=== PATIENT | female | born 1945 | race Caucasian/White ===

== ENCOUNTER 2018-06-10 11:08 | Inpatient (IN) | payer MEDICARE ==
[~2018-06-10] VITALS: Ht 152.4 cm; Wt 62.0 kg
[2018-06-10] VITALS (7 sets, daily range): BP systolic 104–132; BP diastolic 46–84
[2018-06-10] MEDS ORDERED: ETOMIDATE (2MG/ML) 20ML VIAL IV ONE ×2 (11:10→11:45)
[2018-06-10] MEDS ORDERED: SUCCINYLCHOLINE CHLORIDE 20 MG/ML 10ML VIAL IV ONE ×2 (11:11→11:45)
[2018-06-10] MEDS ORDERED: methylPREDNISolone SOD SUCC 125 MG/2 ML VL ONE (11:11)
[2018-06-10] MEDS ORDERED: MIDAZOLAM DRIP 50 mg/50mL 50 ML IV ONE (11:11)
[2018-06-10] MEDS ORDERED: methylPREDNISolone SOD SUCC 125 MG/2 ML VL IV ONE (11:13)
[2018-06-10] MEDS: MIDAZOLAM DRIP 50 mg/50mL 50 ML IV SCH ×2 (11:25→21:42)
[2018-06-10 11:35] LABS: Basophils # (auto) 0.1 uL; Basophils % (auto) 0.5 % (0.0-2.0); Eosinophils # (auto) 0.1 uL; Hemoglobin 11.3 g/dL (12.2-16.2)
[2018-06-10 11:38] LABS: Eosinophils % (auto) 0.3 % (0.0-7.0); Hematocrit 34.8 % (36.0-46.0); Lymphocytes % (auto) 10.3 % (10.0-50.0); Mean Corpuscular Hemoglobin 29.6 pg (28.0-32.0); Mean Corpuscular Hgb Conc. 32.3 g/dL (32.0-36.0); Mean Corpuscular Volume 91.7 fL (80.0-100.0); Monocytes # (auto) 1.3 uL; Monocytes % (auto) 6.4 % (0.0-12.0); Neutrophils # (auto) 16.2 uL; Neutrophils % (auto) 82.5 % (37.0-80.0); Platelet Count (auto) 447 10^3/uL (140-450); Red Cell Distribution Width 17.3 % (11.8-14.3); White Blood Cell 19.6 10^3/uL (4.4-10.8)
[2018-06-10 12:02] LABS: Albumin 3.5 g/dL (3.4-5.0); BUN/Creatinine Ratio 21.3; Bilirubin, Total 0.5 mg/dL (0.2-1.0); Calcium 8.7 mg/dL (8.5-10.1); Magnesium 2.2 mg/dL (1.6-2.6); Potassium 3.8 mmol/L (3.5-5.1); Total Protein 7.1 g/dL (6.4-8.2)
[2018-06-10] MEDS ORDERED: NOREPINEPHRINE 8 MG/250ML KIT 250 ML IV ONE (12:22)
[2018-06-10 12:56] LABS: Lactic Acid w/Reflex 5.4 mmol/L (0.4-2.0)
[2018-06-10] MEDS: NOREPINEPHRINE 8 MG/250ML KIT 250 ML IV SCH (13:13)
[2018-06-10] MEDS ORDERED: ONDANSETRON HCL 4 MG/2 ML VIAL IV PRN (13:45)
[2018-06-10] MEDS ORDERED: DEXTROSE (50%) 50ML SYRG IV ONE (14:45)
[2018-06-10] MEDS: cefTRIAXone 1GM/10ml IVPUSH 10 ML IV SCH (14:46)
[2018-06-10] MEDS: AZITHROMYCIN 500MG/ 250ML 250 ML IV SCH (14:46)
[2018-06-10] MEDS: FUROSEMIDE 20 MG/2 ML VIAL IV SCH (14:46)
[2018-06-10] MEDS: FAMOTIDINE (10MG/ML) 2ML VL IV SCH ×2 (14:47→22:30)
[2018-06-10] MEDS: D5W/SOD CHL 0.45% 1,000 ML IV SCH (15:14)
[2018-06-10 16:01] LABS: Urine Bacteria NONE SEEN /hpf (None Seen); Urine Blood 1+ /uL (Negative); Urine Hyaline Cast FEW /lpf (0 - 2); Urine Mucus FEW (None Seen); Urine WBC 1 /hpf (0 - 5)
[2018-06-10] MEDS: PROPOFOL 100 ML IV SCH (16:42)
[2018-06-10] MEDS ORDERED: ACCU-CHEK COMFORT CURVE STRIP VI ONE (17:00)
[2018-06-10] MEDS ORDERED: InsuLIN REG 1unit/0.01ml Soln (100units/ml) SC ONE (17:00)
[2018-06-10] MEDS: methylPREDNISolone SOD SUCC 40 MG/ML VL IV SCH (22:30)
[2018-06-11] VITALS (82 sets, daily range): BP systolic 86–126; BP diastolic 32–78
[2018-06-11] MEDS: MIDAZOLAM DRIP 50 mg/50mL 50 ML IV SCH ×3 (01:14→19:51)
[2018-06-11] MEDS: D5W/SOD CHL 0.45% 1,000 ML IV SCH ×3 (03:05→19:49)
[2018-06-11] MEDS: NOREPINEPHRINE 8 MG/250ML KIT 250 ML IV SCH (03:52)
[2018-06-11 08:17] LABS: Basophils # (auto) 0 uL; Basophils % (auto) 0.2 % (0.0-2.0); Eosinophils # (auto) 0 uL; Eosinophils % (auto) 0.1 % (0.0-7.0); Hematocrit 31.8 % (36.0-46.0); Hemoglobin 10.5 g/dL (12.2-16.2); Lymphocytes # (auto) 0.7 uL; Lymphocytes % (auto) 5.7 % (10.0-50.0); Mean Corpuscular Hemoglobin 29.6 pg (28.0-32.0); Mean Corpuscular Hgb Conc. 33.2 g/dL (32.0-36.0); Mean Corpuscular Volume 89.2 fL (80.0-100.0); Monocytes # (auto) 1.1 uL; Neutrophils # (auto) 10.2 uL; Platelet Count (auto) 370 10^3/uL (140-450); Red Blood Cells 3.57 10^6/uL (4.0-5.20); Red Cell Distribution Width 17.6 % (11.8-14.3)
[2018-06-11 08:53] LABS: Albumin 2.8 g/dL (3.4-5.0); BUN/Creatinine Ratio 22.7; Bilirubin, Total 0.4 mg/dL (0.2-1.0); Calcium 8.2 mg/dL (8.5-10.1); Potassium 3.6 mmol/L (3.5-5.1); Total Protein 6.4 g/dL (6.4-8.2)
[2018-06-11] MEDS: AZITHROMYCIN 500MG/ 250ML 250 ML IV SCH (09:45)
[2018-06-11] MEDS: FUROSEMIDE 20 MG/2 ML VIAL IV SCH (09:45)
[2018-06-11] MEDS: FAMOTIDINE (10MG/ML) 2ML VL IV SCH ×2 (09:45→22:25)
[2018-06-11] MEDS: methylPREDNISolone SOD SUCC 40 MG/ML VL IV SCH ×2 (09:46→22:25)
[2018-06-11] MEDS: cefTRIAXone 1GM/10ml IVPUSH 10 ML IV SCH (09:46)
[2018-06-11] MEDS: PROPOFOL 100 ML IV SCH ×2 (15:24→19:50)
[2018-06-12] VITALS (100 sets, daily range): BP systolic 86–144; BP diastolic 34–84
[2018-06-12] MEDS: MIDAZOLAM DRIP 50 mg/50mL 50 ML IV SCH ×4 (01:43→20:20)
[2018-06-12 04:12] LABS: Basophils # (auto) 0 uL; Eosinophils # (auto) 0 uL; Hematocrit 34.4 % (36.0-46.0); Lymphocytes # (auto) 0.6 uL; Mean Corpuscular Hemoglobin 29.6 pg (28.0-32.0); Mean Corpuscular Hgb Conc. 31.8 g/dL (32.0-36.0); Mean Corpuscular Volume 93.1 fL (80.0-100.0); Monocytes # (auto) 1.1 uL; Neutrophils # (auto) 10.2 uL; Nucleated Red Blood Cells % 0.1 %; Platelet Count (auto) 277 10^3/uL (140-450); Red Cell Distribution Width 18.2 % (11.8-14.3); White Blood Cell 11.9 10^3/uL (4.4-10.8)
[2018-06-12 04:30] LABS: Alanine Aminotransferase 29 U/L (13-56); Albumin 2.4 g/dL (3.4-5.0); Anion Gap 14 (5-15); Aspartate Aminotransferase 26 U/L (15-37); BUN/Creatinine Ratio 26.8; Blood Urea Nitrogen 15 mg/dL (7-18); Calcium 8.1 mg/dL (8.5-10.1); Carbon Dioxide 24 mmol/L (21-32); Chloride 92 mmol/L (98-107); GFR African American 137 mL/min; GFR Non-African American 113 mL/min; Glucose 126 mg/dL (74-106); Potassium 3.9 mmol/L (3.5-5.1); Sodium 130 mmol/L (136-145)
[2018-06-12 04:33] LABS: Alkaline Phosphatase 62 U/L (45-117); Bilirubin, Total 0.3 mg/dL (0.2-1.0); Total Protein 5.9 g/dL (6.4-8.2)
[2018-06-12] MEDS: FAMOTIDINE (10MG/ML) 2ML VL IV SCH ×2 (10:28→23:05)
[2018-06-12] MEDS: FUROSEMIDE 20 MG/2 ML VIAL IV SCH (10:28)
[2018-06-12] MEDS: VANCOMYCIN 1GM/250ML 250 ML IV SCH ×2 (10:28→22:00)
[2018-06-12] MEDS: cefTRIAXone 1GM/10ml IVPUSH 10 ML IV SCH (10:29)
[2018-06-12] MEDS: methylPREDNISolone SOD SUCC 40 MG/ML VL IV SCH ×2 (10:29→23:04)
[2018-06-12] MEDS: PROPOFOL 100 ML IV SCH (10:30)
[2018-06-12] MEDS: NOREPINEPHRINE 8 MG/250ML KIT 250 ML IV SCH (12:50)
[2018-06-12] MEDS: D5W/SOD CHL 0.45% 1,000 ML IV SCH (14:30)
[2018-06-12] MEDS ORDERED: MAGN400T5 PO (15:22)
[2018-06-12] MEDS ORDERED: SODIENE35 RE (15:37)
[2018-06-12] MEDS ORDERED: POTA10TA51 PO (15:37)
[2018-06-12] MEDS ORDERED: PRE5T PO (15:37)
[2018-06-12] MEDS ORDERED: FAM20T PO (15:37)
[2018-06-12] MEDS ORDERED: THIA100T5 PO (15:37)
[2018-06-12] MEDS ORDERED: SENN1TAB14 PO (15:37)
[2018-06-12] MEDS ORDERED: FURO40TA4 PO (15:37)
[2018-06-12] MEDS ORDERED: FOLI1TAB6 PO (15:37)
[2018-06-12] MEDS ORDERED: FER325T PO (15:37)
[2018-06-12] MEDS ORDERED: ALPR0.25 PO (16:09)
[2018-06-12] MEDS ORDERED: AZIT250T8 PO (16:09)
[2018-06-12] MEDS ORDERED: ONDA4TAB5 PO (16:09)
[2018-06-12] MEDS ORDERED: NITR0.4S29 SL (16:09)
[2018-06-12] MEDS ORDERED: IPRA0.03 (16:09)
[2018-06-12] MEDS ORDERED: MOMLQ PO (16:09)
[2018-06-12] MEDS ORDERED: BIS10RS PR (16:09)
[2018-06-12] MEDS ORDERED: HYDR-4683 PO (16:09)
[2018-06-12] MEDS ORDERED: LEVA1NEB5 NEB ×2 (16:09)
[2018-06-12] MEDS ORDERED: FLUT0.05 NAS (16:09)
[2018-06-12] MEDS ORDERED: DEXTROSE (50%) 50ML SYRG IV PRN (17:00)
[2018-06-12] MEDS: ACCU-CHEK COMFORT CURVE STRIP VI SCH (18:30)
[2018-06-12] MEDS: InsuLIN REG 1unit/0.01ml Soln (100units/ml) SC SCH (18:40)
[2018-06-13] VITALS (101 sets, daily range): BP systolic 101–155; BP diastolic 41–96
[2018-06-13] MEDS: ALBUTEROL SULF 2.5 MG/0.5ML(0.5%) NEB SOLN NEB PRN ×2 (03:36→18:17)
[2018-06-13] MEDS: IPRATROPIUM BROM 0.5 MG/2.5ML INH SOL NEB PRN ×2 (03:36→18:17)
[2018-06-13 03:51] LABS: Basophils # (auto) 0 uL; Basophils % (auto) 0.3 % (0.0-2.0); Eosinophils # (auto) 0 uL; Hematocrit 34.6 % (36.0-46.0); Hemoglobin 11.4 g/dL (12.2-16.2); Lymphocytes # (auto) 0.3 uL; Lymphocytes % (auto) 4.6 % (10.0-50.0); Mean Corpuscular Hemoglobin 29.4 pg (28.0-32.0); Mean Corpuscular Volume 89.2 fL (80.0-100.0); Monocytes # (auto) 0.4 uL; Monocytes % (auto) 5.7 % (0.0-12.0); Neutrophils # (auto) 6.6 uL; Neutrophils % (auto) 89.4 % (37.0-80.0); Nucleated Red Blood Cells % 0.1 %; Platelet Count (auto) 329 10^3/uL (140-450); Red Blood Cells 3.88 10^6/uL (4.0-5.20); Red Cell Distribution Width 17.5 % (11.8-14.3); White Blood Cell 7.4 10^3/uL (4.4-10.8)
[2018-06-13 04:11] LABS: Albumin 2.7 g/dL (3.4-5.0); BUN/Creatinine Ratio 32.6; Bilirubin, Total 0.3 mg/dL (0.2-1.0); Calcium 8.4 mg/dL (8.5-10.1); Potassium 3.4 mmol/L (3.5-5.1); Total Protein 6.1 g/dL (6.4-8.2)
[2018-06-13] MEDS: MIDAZOLAM DRIP 50 mg/50mL 50 ML IV SCH ×2 (05:54→13:44)
[2018-06-13] MEDS: ACCU-CHEK COMFORT CURVE STRIP VI SCH ×4 (05:56→18:00)
[2018-06-13] MEDS: D5W/SOD CHL 0.45% 1,000 ML IV SCH ×2 (05:56→21:29)
[2018-06-13] MEDS: InsuLIN REG 1unit/0.01ml Soln (100units/ml) SC SCH ×4 (06:09→18:00)
[2018-06-13] MEDS: PROPOFOL 100 ML IV SCH (07:35)
[2018-06-13] MEDS: FUROSEMIDE 20 MG/2 ML VIAL IV SCH (09:36)
[2018-06-13] MEDS: methylPREDNISolone SOD SUCC 40 MG/ML VL IV SCH ×2 (09:36→22:16)
[2018-06-13] MEDS: FAMOTIDINE (10MG/ML) 2ML VL IV SCH ×2 (09:36→22:15)
[2018-06-13] MEDS: VANCOMYCIN 1GM/250ML 250 ML IV SCH ×2 (09:44→22:16)
[2018-06-13] MEDS: cefTRIAXone 1GM/10ml IVPUSH 10 ML IV SCH (09:44)
[2018-06-13] MEDS ORDERED: hydrALAZINE HCL 20 MG/ML VL IV PRN (11:00)
[2018-06-13] MEDS ORDERED: POTASSIUM CHL 20MEQ/100ML 100 ML IV SCH (11:00)
[2018-06-13] MEDS: MORPHINE SULF INJ 2 MG/ML SYRINGE 1ML IV PRN (11:21)
[2018-06-13] MEDS ORDERED: LIDOCAINE 1% IV ONE (11:30)
[2018-06-13] MEDS ORDERED: SODIUM CHL 0.9% IV ONE (11:30)
[2018-06-13] MEDS ORDERED: POTASSIUM CHLORIDE IV ONE (11:30)
[2018-06-13] MEDS: NOREPINEPHRINE 8 MG/250ML KIT 250 ML IV SCH (12:50)
[2018-06-14] VITALS (94 sets, daily range): BP systolic 111–168; BP diastolic 43–85
[2018-06-14] MEDS: IPRATROPIUM BROM 0.5 MG/2.5ML INH SOL NEB PRN (00:16)
[2018-06-14] MEDS: ALBUTEROL SULF 2.5 MG/0.5ML(0.5%) NEB SOLN NEB PRN (00:16)
[2018-06-14 03:48] LABS: Basophils # (auto) 0 uL; Basophils % (auto) 0.4 % (0.0-2.0); Eosinophils # (auto) 0.2 uL; Hematocrit 34.6 % (36.0-46.0); Hemoglobin 11.4 g/dL (12.2-16.2); Lymphocytes # (auto) 0.2 uL; Lymphocytes % (auto) 2.1 % (10.0-50.0); Mean Corpuscular Hemoglobin 29.3 pg (28.0-32.0); Mean Corpuscular Volume 88.8 fL (80.0-100.0); Monocytes # (auto) 0.4 uL; Monocytes % (auto) 4.6 % (0.0-12.0); Neutrophils # (auto) 8.1 uL; Neutrophils % (auto) 90.9 % (37.0-80.0); Nucleated Red Blood Cells % 0.1 %; Platelet Count (auto) 370 10^3/uL (140-450); Red Blood Cells 3.89 10^6/uL (4.0-5.20); Red Cell Distribution Width 17.4 % (11.8-14.3); White Blood Cell 8.9 10^3/uL (4.4-10.8)
[2018-06-14 04:03] LABS: BUN/Creatinine Ratio 34.9; Calcium 8.7 mg/dL (8.5-10.1)
[2018-06-14] MEDS: InsuLIN REG 1unit/0.01ml Soln (100units/ml) SC SCH ×4 (06:00→18:00)
[2018-06-14] MEDS: ACCU-CHEK COMFORT CURVE STRIP VI SCH ×4 (06:12→18:18)
[2018-06-14] MEDS ORDERED: FUROSEMIDE 40 MG/4 ML VIAL ONE (10:01)
[2018-06-14] MEDS: cefTRIAXone 1GM/10ml IVPUSH 10 ML IV SCH (10:09)
[2018-06-14] MEDS: VANCOMYCIN 1GM/250ML 250 ML IV SCH ×2 (10:09→21:57)
[2018-06-14] MEDS: FAMOTIDINE (10MG/ML) 2ML VL IV SCH ×2 (10:09→22:18)
[2018-06-14] MEDS: methylPREDNISolone SOD SUCC 40 MG/ML VL IV SCH ×2 (10:10→22:18)
[2018-06-14] MEDS: FUROSEMIDE 40 MG/4 ML VIAL IV SCH (10:15)
[2018-06-14] MEDS: D5W/SOD CHL 0.45% 1,000 ML IV SCH (11:05)
[2018-06-14] MEDS: NOREPINEPHRINE 8 MG/250ML KIT 250 ML IV SCH (12:50)
[2018-06-14] MEDS ORDERED: Jevity 1.2 Cal/Fiber 1 Liter GT SCH (17:00)
[2018-06-14] MEDS: PROPOFOL 100 ML IV SCH (18:18)
[2018-06-15] VITALS (104 sets, daily range): BP systolic 91–155; BP diastolic 40–92
[2018-06-15] MEDS: ACCU-CHEK COMFORT CURVE STRIP VI SCH ×4 (00:18→18:11)
[2018-06-15] MEDS: D5W/SOD CHL 0.45% 1,000 ML IV SCH (01:00)
[2018-06-15 04:32] LABS: Basophils # (auto) 0 uL; Basophils % (auto) 0.2 % (0.0-2.0); Eosinophils # (auto) 0 uL; Hematocrit 35.6 % (36.0-46.0); Hemoglobin 12.1 g/dL (12.2-16.2); Lymphocytes # (auto) 0.4 uL; Lymphocytes % (auto) 4.4 % (10.0-50.0); Mean Corpuscular Hemoglobin 30.1 pg (28.0-32.0); Mean Corpuscular Hgb Conc. 33.9 g/dL (32.0-36.0); Mean Corpuscular Volume 88.7 fL (80.0-100.0); Monocytes # (auto) 0.6 uL; Monocytes % (auto) 6.6 % (0.0-12.0); Neutrophils # (auto) 8.8 uL; Neutrophils % (auto) 88.8 % (37.0-80.0); Platelet Count (auto) 351 10^3/uL (140-450); Red Blood Cells 4.01 10^6/uL (4.0-5.20); Red Cell Distribution Width 16.8 % (11.8-14.3); White Blood Cell 9.9 10^3/uL (4.4-10.8)
[2018-06-15 04:46] LABS: Albumin 2.7 g/dL (3.4-5.0); BUN/Creatinine Ratio 44.4; Calcium 9.1 mg/dL (8.5-10.1); Potassium 3.4 mmol/L (3.5-5.1)
[2018-06-15 04:49] LABS: Bilirubin, Total 0.3 mg/dL (0.2-1.0); Total Protein 6.1 g/dL (6.4-8.2)
[2018-06-15] MEDS: InsuLIN REG 1unit/0.01ml Soln (100units/ml) SC SCH ×4 (06:27→18:11)
[2018-06-15] MEDS: PROPOFOL 100 ML IV SCH ×2 (08:00→21:00)
[2018-06-15] MEDS: FUROSEMIDE 40 MG/4 ML VIAL IV SCH (09:56)
[2018-06-15] MEDS: cefTRIAXone 1GM/10ml IVPUSH 10 ML IV SCH (09:57)
[2018-06-15] MEDS: FAMOTIDINE (10MG/ML) 2ML VL IV SCH ×2 (09:57→22:00)
[2018-06-15] MEDS: methylPREDNISolone SOD SUCC 40 MG/ML VL IV SCH ×2 (09:57→22:00)
[2018-06-15] MEDS ORDERED: VANCOMYCIN 1GM/250ML 250 ML IV SCH (10:00)
[2018-06-15] MEDS: MIDAZOLAM DRIP 50 mg/50mL 50 ML IV SCH (11:38)
[2018-06-15] MEDS: NOREPINEPHRINE 8 MG/250ML KIT 250 ML IV SCH (12:50)
[2018-06-15] MEDS ORDERED: FUROSEMIDE 40 MG/4 ML VIAL IV ONE (13:30)
[2018-06-15] MEDS: LINEZOLID 600MG/300ML 300 ML IV SCH ×2 (14:37→22:00)
[2018-06-15] MEDS: POTASSIUM CHL 20MEQ/100ML 100 ML IV SCH ×3 (14:37→18:30)
[2018-06-16] VITALS (105 sets, daily range): BP systolic 65–157; BP diastolic 43–107
[2018-06-16 03:45] LABS: Basophils # (auto) 0 uL; Eosinophils # (auto) 0 uL; Hematocrit 35.6 % (36.0-46.0); Hemoglobin 11.8 g/dL (12.2-16.2); Lymphocytes # (auto) 0.5 uL; Lymphocytes % (auto) 3.6 % (10.0-50.0); Mean Corpuscular Hemoglobin 29.2 pg (28.0-32.0); Mean Corpuscular Volume 88.5 fL (80.0-100.0); Monocytes # (auto) 0.7 uL; Monocytes % (auto) 5.5 % (0.0-12.0); Neutrophils # (auto) 12.3 uL; Neutrophils % (auto) 90.9 % (37.0-80.0); Nucleated Red Blood Cells % 0.1 %; Platelet Count (auto) 350 10^3/uL (140-450); Red Blood Cells 4.02 10^6/uL (4.0-5.20); Red Cell Distribution Width 16.9 % (11.8-14.3); White Blood Cell 13.6 10^3/uL (4.4-10.8)
[2018-06-16 04:02] LABS: Potassium 3.4 mmol/L (3.5-5.1)
[2018-06-16 04:04] LABS: BUN/Creatinine Ratio 41.1
[2018-06-16] MEDS: ACCU-CHEK COMFORT CURVE STRIP VI SCH ×3 (06:00→12:28)
[2018-06-16] MEDS: InsuLIN REG 1unit/0.01ml Soln (100units/ml) SC SCH ×3 (06:00→13:18)
[2018-06-16] MEDS: PROPOFOL 100 ML IV SCH (07:50)
[2018-06-16] MEDS: methylPREDNISolone SOD SUCC 40 MG/ML VL IV SCH ×2 (10:30→22:30)
[2018-06-16] MEDS: cefTRIAXone 1GM/10ml IVPUSH 10 ML IV SCH (10:30)
[2018-06-16] MEDS: FUROSEMIDE 40 MG/4 ML VIAL IV SCH (10:51)
[2018-06-16] MEDS: LINEZOLID 600MG/300ML 300 ML IV SCH ×2 (10:52→22:29)
[2018-06-16] MEDS: FAMOTIDINE (10MG/ML) 2ML VL IV SCH ×2 (10:52→22:30)
[2018-06-16] MEDS: MIDAZOLAM DRIP 50 mg/50mL 50 ML IV SCH (10:52)
[2018-06-16] MEDS: POTASSIUM CHL 20MEQ/100ML 100 ML IV PRN ×3 (11:00→14:49)
[2018-06-16] MEDS ORDERED: ENOXAPARIN SOD 40 MG/0.4 ML SYRINGE SC ONE (11:35)
[2018-06-16] MEDS: ENOXAPARIN SOD 40 MG/0.4 ML SYRINGE SC SCH (12:00)
[2018-06-16] MEDS: NOREPINEPHRINE 8 MG/250ML KIT 250 ML IV SCH (12:50)
[2018-06-16] MEDS ORDERED: IOHEXOL 350 MG/ML 100ML IJ ONE (15:24)
[2018-06-17] VITALS (102 sets, daily range): BP systolic 0–146; BP diastolic 0–84
[2018-06-17] MEDS: ACCU-CHEK COMFORT CURVE STRIP VI SCH ×4 (02:47→18:49)
[2018-06-17] MEDS: InsuLIN REG 1unit/0.01ml Soln (100units/ml) SC SCH ×4 (02:47→18:00)
[2018-06-17 04:20] LABS: Basophils # (auto) 0 uL; Basophils % (auto) 0.1 % (0.0-2.0); Eosinophils # (auto) 0 uL; Eosinophils % (auto) 0.1 % (0.0-7.0); Hematocrit 34.5 % (36.0-46.0); Hemoglobin 11.6 g/dL (12.2-16.2); Lymphocytes # (auto) 0.5 uL; Lymphocytes % (auto) 5.5 % (10.0-50.0); Mean Corpuscular Hemoglobin 29.7 pg (28.0-32.0); Mean Corpuscular Hgb Conc. 33.6 g/dL (32.0-36.0); Mean Corpuscular Volume 88.4 fL (80.0-100.0); Monocytes # (auto) 0.5 uL; Monocytes % (auto) 5.6 % (0.0-12.0); Neutrophils # (auto) 8.5 uL; Neutrophils % (auto) 88.7 % (37.0-80.0); Platelet Count (auto) 340 10^3/uL (140-450); Red Cell Distribution Width 16.5 % (11.8-14.3); White Blood Cell 9.5 10^3/uL (4.4-10.8)
[2018-06-17 04:42] LABS: BUN/Creatinine Ratio 41.1; Bilirubin, Total 0.3 mg/dL (0.2-1.0); Calcium 8.6 mg/dL (8.5-10.1); Potassium 3.9 mmol/L (3.5-5.1); Total Protein 6.4 g/dL (6.4-8.2)
[2018-06-17] MEDS: POTASSIUM CHL 20MEQ/100ML 100 ML IV PRN ×2 (07:30→09:43)
[2018-06-17] MEDS: methylPREDNISolone SOD SUCC 40 MG/ML VL IV SCH ×2 (09:41→21:50)
[2018-06-17] MEDS: FUROSEMIDE 40 MG/4 ML VIAL IV SCH (09:41)
[2018-06-17] MEDS: FAMOTIDINE (10MG/ML) 2ML VL IV SCH ×2 (09:41→21:50)
[2018-06-17] MEDS: cefTRIAXone 1GM/10ml IVPUSH 10 ML IV SCH (09:41)
[2018-06-17] MEDS: ENOXAPARIN SOD 40 MG/0.4 ML SYRINGE SC SCH (09:42)
[2018-06-17] MEDS: LINEZOLID 600MG/300ML 300 ML IV SCH ×2 (09:42→21:50)
[2018-06-17] MEDS: MIDAZOLAM DRIP 50 mg/50mL 50 ML IV SCH (11:38)
[2018-06-17] MEDS ORDERED: IOHEXOL 350 MG/ML 100ML IJ ONE (12:14)
[2018-06-17] MEDS: NOREPINEPHRINE 8 MG/250ML KIT 250 ML IV SCH (12:50)
[2018-06-17] MEDS: PROPOFOL 100 ML IV SCH (18:00)
[2018-06-18] VITALS (90 sets, daily range): BP systolic 65–150; BP diastolic 27–107
[2018-06-18] MEDS: ACCU-CHEK COMFORT CURVE STRIP VI SCH ×4 (00:18→18:28)
[2018-06-18] MEDS: InsuLIN REG 1unit/0.01ml Soln (100units/ml) SC SCH ×4 (00:18→18:00)
[2018-06-18 04:04] LABS: Basophils # (auto) 0 uL; Eosinophils # (auto) 0 uL; Eosinophils % (auto) 0.1 % (0.0-7.0); Hematocrit 35.3 % (36.0-46.0); Hemoglobin 11.9 g/dL (12.2-16.2); Lymphocytes # (auto) 0.6 uL; Lymphocytes % (auto) 6.8 % (10.0-50.0); Mean Corpuscular Hemoglobin 29.7 pg (28.0-32.0); Mean Corpuscular Hgb Conc. 33.7 g/dL (32.0-36.0); Mean Corpuscular Volume 88.1 fL (80.0-100.0); Monocytes # (auto) 0.6 uL; Monocytes % (auto) 6.3 % (0.0-12.0); Neutrophils # (auto) 7.7 uL; Neutrophils % (auto) 86.8 % (37.0-80.0); Platelet Count (auto) 353 10^3/uL (140-450); Red Blood Cells 4.01 10^6/uL (4.0-5.20); Red Cell Distribution Width 16.2 % (11.8-14.3); White Blood Cell 8.8 10^3/uL (4.4-10.8)
[2018-06-18 04:21] LABS: Albumin 2.9 g/dL (3.4-5.0); BUN/Creatinine Ratio 45.5; Calcium 8.6 mg/dL (8.5-10.1); Potassium 3.6 mmol/L (3.5-5.1)
[2018-06-18 04:24] LABS: Bilirubin, Total 0.2 mg/dL (0.2-1.0); Total Protein 6.5 g/dL (6.4-8.2)
[2018-06-18] MEDS ORDERED: POTASSIUM CHL 20MEQ/100ML 100 ML, POTASSIUM CHL 20MEQ/100ML 100 ML IV PRN (05:45)
[2018-06-18] MEDS: POTASSIUM CHL 20MEQ/100ML 100 ML IV PRN (06:33)
[2018-06-18] MEDS: PROPOFOL 100 ML IV SCH (06:33)
[2018-06-18] MEDS: cefTRIAXone 1GM/10ml IVPUSH 10 ML IV SCH (11:12)
[2018-06-18] MEDS: FUROSEMIDE 40 MG/4 ML VIAL IV SCH (11:12)
[2018-06-18] MEDS: FAMOTIDINE (10MG/ML) 2ML VL IV SCH ×2 (11:12→22:43)
[2018-06-18] MEDS: methylPREDNISolone SOD SUCC 40 MG/ML VL IV SCH ×2 (11:13→22:43)
[2018-06-18] MEDS: ENOXAPARIN SOD 40 MG/0.4 ML SYRINGE SC SCH (11:13)
[2018-06-18] MEDS: MIDAZOLAM DRIP 50 mg/50mL 50 ML IV SCH (11:13)
[2018-06-18] MEDS: LINEZOLID 600MG/300ML 300 ML IV SCH ×2 (11:13→22:43)
[2018-06-18] MEDS: NOREPINEPHRINE 8 MG/250ML KIT 250 ML IV SCH (12:37)
[2018-06-18] MEDS: ALBUTEROL SULF 2.5 MG/0.5ML(0.5%) NEB SOLN NEB SCH ×2 (14:14→22:10)
[2018-06-18] MEDS: IPRATROPIUM BROM 0.5 MG/2.5ML INH SOL NEB PRN ×2 (14:14→22:10)
[2018-06-18] MEDS: MORPHINE SULF INJ 2 MG/ML SYRINGE 1ML IV PRN (14:29)
[2018-06-19] VITALS (58 sets, daily range): BP systolic 78–137; BP diastolic 30–64
[2018-06-19] MEDS: InsuLIN REG 1unit/0.01ml Soln (100units/ml) SC SCH ×4 (00:08→17:53)
[2018-06-19] MEDS: ACCU-CHEK COMFORT CURVE STRIP VI SCH ×4 (00:08→17:53)
[2018-06-19 04:05] LABS: BUN/Creatinine Ratio 33.9; Calcium 8.6 mg/dL (8.5-10.1)
[2018-06-19] MEDS: ALBUTEROL SULF 2.5 MG/0.5ML(0.5%) NEB SOLN NEB SCH ×3 (06:55→22:35)
[2018-06-19] MEDS: cefTRIAXone 1GM/10ml IVPUSH 10 ML IV SCH (09:53)
[2018-06-19] MEDS: ENOXAPARIN SOD 40 MG/0.4 ML SYRINGE SC SCH (09:53)
[2018-06-19] MEDS: FUROSEMIDE 40 MG/4 ML VIAL IV SCH (09:53)
[2018-06-19] MEDS: FAMOTIDINE (10MG/ML) 2ML VL IV SCH ×2 (09:53→22:36)
[2018-06-19] MEDS: NOREPINEPHRINE 8 MG/250ML KIT 250 ML IV SCH (09:54)
[2018-06-19] MEDS: LINEZOLID 600MG/300ML 300 ML IV SCH ×2 (09:54→22:37)
[2018-06-19] MEDS: methylPREDNISolone SOD SUCC 40 MG/ML VL IV SCH ×2 (09:54→22:37)
[2018-06-20] VITALS (7 sets, daily range): BP systolic 96–124; BP diastolic 46–65
[2018-06-20] MEDS: ACCU-CHEK COMFORT CURVE STRIP VI SCH ×4 (00:40→17:47)
[2018-06-20] MEDS: InsuLIN REG 1unit/0.01ml Soln (100units/ml) SC SCH ×4 (00:40→17:47)
[2018-06-20] MEDS: ALBUTEROL SULF 2.5 MG/0.5ML(0.5%) NEB SOLN NEB SCH ×3 (06:08→22:00)
[2018-06-20] MEDS: ENOXAPARIN SOD 40 MG/0.4 ML SYRINGE SC SCH (10:00)
[2018-06-20 10:27] LABS: Basophils # (auto) 0 uL; Basophils % (auto) 0.1 % (0.0-2.0); Eosinophils # (auto) 0 uL; Eosinophils % (auto) 0.1 % (0.0-7.0); Hematocrit 37.6 % (36.0-46.0); Hemoglobin 12.9 g/dL (12.2-16.2); Lymphocytes # (auto) 0.7 uL; Lymphocytes % (auto) 7.1 % (10.0-50.0); Mean Corpuscular Hemoglobin 30.3 pg (28.0-32.0); Mean Corpuscular Hgb Conc. 34.4 g/dL (32.0-36.0); Mean Corpuscular Volume 88.1 fL (80.0-100.0); Monocytes # (auto) 0.6 uL; Monocytes % (auto) 5.5 % (0.0-12.0); Neutrophils % (auto) 87.2 % (37.0-80.0); Nucleated Red Blood Cells % 0.1 %; Platelet Count (auto) 257 10^3/uL (140-450); Red Blood Cells 4.27 10^6/uL (4.0-5.20); Red Cell Distribution Width 16.6 % (11.8-14.3); White Blood Cell 10.3 10^3/uL (4.4-10.8)
[2018-06-20] MEDS: LINEZOLID 600MG/300ML 300 ML IV SCH ×2 (10:29→21:47)
[2018-06-20] MEDS: FAMOTIDINE (10MG/ML) 2ML VL IV SCH ×2 (10:30→21:46)
[2018-06-20] MEDS: FUROSEMIDE 40 MG/4 ML VIAL IV SCH (10:30)
[2018-06-20] MEDS: methylPREDNISolone SOD SUCC 40 MG/ML VL IV SCH ×2 (10:30→21:46)
[2018-06-20] MEDS: cefTRIAXone 1GM/10ml IVPUSH 10 ML IV SCH (10:30)
[2018-06-21] MEDS: ACCU-CHEK COMFORT CURVE STRIP VI SCH ×4 (00:13→17:46)
[2018-06-21] MEDS: InsuLIN REG 1unit/0.01ml Soln (100units/ml) SC SCH ×4 (00:13→17:46)
[2018-06-21 04:55] VITALS: BP 117/58
[2018-06-21] MEDS: ALBUTEROL SULF 2.5 MG/0.5ML(0.5%) NEB SOLN NEB SCH ×3 (06:12→22:28)
[2018-06-21 07:45] LABS: Basophils # (auto) 0 uL; Basophils % (auto) 0.1 % (0.0-2.0); Eosinophils # (auto) 0 uL; Eosinophils % (auto) 0.1 % (0.0-7.0); Hematocrit 36.9 % (36.0-46.0); Hemoglobin 12.6 g/dL (12.2-16.2); Lymphocytes # (auto) 0.7 uL; Lymphocytes % (auto) 7.7 % (10.0-50.0); Mean Corpuscular Hemoglobin 29.8 pg (28.0-32.0); Mean Corpuscular Hgb Conc. 34.1 g/dL (32.0-36.0); Mean Corpuscular Volume 87.3 fL (80.0-100.0); Monocytes # (auto) 0.5 uL; Monocytes % (auto) 5.3 % (0.0-12.0); Neutrophils # (auto) 7.8 uL; Neutrophils % (auto) 86.8 % (37.0-80.0); Platelet Count (auto) 320 10^3/uL (140-450); Red Blood Cells 4.23 10^6/uL (4.0-5.20); Red Cell Distribution Width 16.1 % (11.8-14.3)
[2018-06-21 08:03] LABS: BUN/Creatinine Ratio 27.1; Calcium 8.7 mg/dL (8.5-10.1); Potassium 3.1 mmol/L (3.5-5.1)
[2018-06-21 09:00] VITALS: BP 105/56
[2018-06-21] MEDS: FUROSEMIDE 40 MG/4 ML VIAL IV SCH (10:14)
[2018-06-21] MEDS: FAMOTIDINE (10MG/ML) 2ML VL IV SCH ×2 (10:14→21:20)
[2018-06-21] MEDS: cefTRIAXone 1GM/10ml IVPUSH 10 ML IV SCH (10:15)
[2018-06-21] MEDS: LINEZOLID 600MG/300ML 300 ML IV SCH ×2 (10:16→21:15)
[2018-06-21] MEDS: methylPREDNISolone SOD SUCC 40 MG/ML VL IV SCH ×2 (10:16→21:17)
[2018-06-21] MEDS: ENOXAPARIN SOD 40 MG/0.4 ML SYRINGE SC SCH (10:16)
[2018-06-21 11:54] VITALS: BP 112/56
[2018-06-21 16:54] VITALS: BP 95/63
[2018-06-21] MEDS: MORPHINE SULF INJ 2 MG/ML SYRINGE 1ML IV PRN (20:21)
[2018-06-21 22:02] VITALS: BP 114/87
[2018-06-21] MEDS: IPRATROPIUM BROM 0.5 MG/2.5ML INH SOL NEB PRN (22:28)
[2018-06-22] MEDS: ACCU-CHEK COMFORT CURVE STRIP VI SCH ×4 (00:17→17:41)
[2018-06-22] MEDS: InsuLIN REG 1unit/0.01ml Soln (100units/ml) SC SCH ×4 (00:18→17:41)
[2018-06-22 05:00] VITALS: BP 122/63
[2018-06-22 05:42] LABS: Basophils # (auto) 0 uL; Eosinophils # (auto) 0 uL; Hematocrit 35.8 % (36.0-46.0); Hemoglobin 12.6 g/dL (12.2-16.2); Lymphocytes # (auto) 0.5 uL; Lymphocytes % (auto) 4.8 % (10.0-50.0); Mean Corpuscular Hemoglobin 30.3 pg (28.0-32.0); Mean Corpuscular Hgb Conc. 35.1 g/dL (32.0-36.0); Mean Corpuscular Volume 86.3 fL (80.0-100.0); Monocytes # (auto) 0.5 uL; Monocytes % (auto) 4.8 % (0.0-12.0); Neutrophils # (auto) 9.7 uL; Neutrophils % (auto) 90.4 % (37.0-80.0); Platelet Count (auto) 280 10^3/uL (140-450); Red Blood Cells 4.14 10^6/uL (4.0-5.20); White Blood Cell 10.8 10^3/uL (4.4-10.8)
[2018-06-22 06:01] LABS: BUN/Creatinine Ratio 25.5; Calcium 8.4 mg/dL (8.5-10.1); Potassium 3.1 mmol/L (3.5-5.1)
[2018-06-22] MEDS: ALBUTEROL SULF 2.5 MG/0.5ML(0.5%) NEB SOLN NEB SCH ×3 (07:17→21:58)
[2018-06-22 08:32] VITALS: BP 122/63
[2018-06-22 09:00] VITALS: BP 113/66
[2018-06-22] MEDS: cefTRIAXone 1GM/10ml IVPUSH 10 ML IV SCH (09:49)
[2018-06-22] MEDS: FAMOTIDINE (10MG/ML) 2ML VL IV SCH ×2 (09:49→21:01)
[2018-06-22] MEDS: methylPREDNISolone SOD SUCC 40 MG/ML VL IV SCH ×2 (09:50→21:01)
[2018-06-22] MEDS: LINEZOLID 600MG/300ML 300 ML IV SCH ×2 (09:50→21:01)
[2018-06-22] MEDS: ENOXAPARIN SOD 40 MG/0.4 ML SYRINGE SC SCH (09:50)
[2018-06-22 13:00] VITALS: BP 118/62
[2018-06-22 17:00] VITALS: BP 114/60
[2018-06-22] MEDS: ALPRAZolam 0.25 MG TAB PO PRN (20:59)
[2018-06-22] MEDS: IPRATROPIUM BROM 0.5 MG/2.5ML INH SOL NEB PRN (21:58)
[2018-06-22 22:00] VITALS: BP 105/59
[2018-06-23] MEDS: ACCU-CHEK COMFORT CURVE STRIP VI SCH ×4 (00:41→17:38)
[2018-06-23] MEDS: InsuLIN REG 1unit/0.01ml Soln (100units/ml) SC SCH ×4 (00:42→17:38)
[2018-06-23 04:55] VITALS: BP 117/70
[2018-06-23 06:41] LABS: Calcium 8.5 mg/dL (8.5-10.1)
[2018-06-23 06:44] LABS: BUN/Creatinine Ratio 18.4; Potassium 2.8 mmol/L (3.5-5.1)
[2018-06-23] MEDS: ALBUTEROL SULF 2.5 MG/0.5ML(0.5%) NEB SOLN NEB SCH ×3 (06:57→21:32)
[2018-06-23 08:55] VITALS: BP 103/50
[2018-06-23] MEDS ORDERED: POTASSIUM EFFERVESENT TAB 25 MEQ PO ONE ×8 (09:00→16:00)
[2018-06-23] MEDS: cefTRIAXone 1GM/10ml IVPUSH 10 ML IV SCH (09:51)
[2018-06-23] MEDS: LINEZOLID 600MG/300ML 300 ML IV SCH ×2 (09:52→22:00)
[2018-06-23] MEDS: methylPREDNISolone SOD SUCC 40 MG/ML VL IV SCH ×2 (09:52→22:09)
[2018-06-23] MEDS: ENOXAPARIN SOD 40 MG/0.4 ML SYRINGE SC SCH (09:52)
[2018-06-23] MEDS: FAMOTIDINE (10MG/ML) 2ML VL IV SCH ×2 (09:57→22:02)
[2018-06-23] MEDS ORDERED: POTASSIUM CHL 20 Meq TABLET PO SCH (11:15)
[2018-06-23] MEDS: ALBUTEROL SULF 2.5 MG/0.5ML(0.5%) NEB SOLN NEB PRN (11:57)
[2018-06-23] MEDS: IPRATROPIUM BROM 0.5 MG/2.5ML INH SOL NEB PRN ×2 (11:58→21:32)
[2018-06-23 12:13] LABS: Protein, Urine 14.1 mg/dL (0.0-11.9)
[2018-06-23 12:47] VITALS: BP 99/60
[2018-06-23] MEDS: POTASSIUM EFFERVESENT TAB 25 MEQ PO SCH ×2 (15:13→18:15)
[2018-06-23 17:29] VITALS: BP 94/60
[2018-06-23 22:00] VITALS: BP 102/47
[2018-06-24] MEDS: ACCU-CHEK COMFORT CURVE STRIP VI SCH ×5 (00:08→23:12)
[2018-06-24] MEDS: InsuLIN REG 1unit/0.01ml Soln (100units/ml) SC SCH ×5 (00:09→23:11)
[2018-06-24 04:55] VITALS: BP 106/73
[2018-06-24 06:20] LABS: Potassium 4.2 mmol/L (3.5-5.1)
[2018-06-24] MEDS: ALBUTEROL SULF 2.5 MG/0.5ML(0.5%) NEB SOLN NEB SCH ×3 (06:21→21:17)
[2018-06-24 06:27] LABS: BUN/Creatinine Ratio 18.4; Calcium 8.5 mg/dL (8.5-10.1)
[2018-06-24 08:02] VITALS: BP 104/64
[2018-06-24] MEDS: cefTRIAXone 1GM/10ml IVPUSH 10 ML IV SCH (08:53)
[2018-06-24] MEDS: methylPREDNISolone SOD SUCC 40 MG/ML VL IV SCH ×2 (08:53→23:00)
[2018-06-24] MEDS: FAMOTIDINE (10MG/ML) 2ML VL IV SCH ×2 (08:54→22:59)
[2018-06-24] MEDS: ENOXAPARIN SOD 40 MG/0.4 ML SYRINGE SC SCH (08:55)
[2018-06-24] MEDS: LINEZOLID 600MG/300ML 300 ML IV SCH ×2 (08:55→23:00)
[2018-06-24 12:26] VITALS: BP 105/58
[2018-06-24 17:11] VITALS: BP 98/54
[2018-06-24] MEDS: ALPRAZolam 0.25 MG TAB PO PRN (21:11)
[2018-06-24 22:00] VITALS: BP 102/60
[2018-06-25 04:58] VITALS: BP 91/44
[2018-06-25] MEDS: InsuLIN REG 1unit/0.01ml Soln (100units/ml) SC SCH ×4 (06:00→23:48)
[2018-06-25] MEDS: ACCU-CHEK COMFORT CURVE STRIP VI SCH ×4 (06:15→23:40)
[2018-06-25] MEDS: ALBUTEROL SULF 2.5 MG/0.5ML(0.5%) NEB SOLN NEB SCH ×3 (06:27→22:36)
[2018-06-25 09:00] VITALS: BP 81/41
[2018-06-25 09:02] VITALS: BP 91/44
[2018-06-25] MEDS: FAMOTIDINE (10MG/ML) 2ML VL IV SCH ×2 (10:16→21:55)
[2018-06-25] MEDS: methylPREDNISolone SOD SUCC 40 MG/ML VL IV SCH ×2 (10:17→21:55)
[2018-06-25] MEDS: ENOXAPARIN SOD 40 MG/0.4 ML SYRINGE SC SCH (10:17)
[2018-06-25] MEDS: cefTRIAXone 1GM/10ml IVPUSH 10 ML IV SCH (10:17)
[2018-06-25] MEDS: LINEZOLID 600MG/300ML 300 ML IV SCH ×2 (10:17→21:55)
[2018-06-25 10:43] LABS: Basophils # (auto) 0 uL; Basophils % (auto) 0.1 % (0.0-2.0); Eosinophils # (auto) 0.1 uL; Eosinophils % (auto) 0.6 % (0.0-7.0); Hematocrit 34.2 % (36.0-46.0); Hemoglobin 11.6 g/dL (12.2-16.2); Lymphocytes # (auto) 1.1 uL; Mean Corpuscular Hemoglobin 30.1 pg (28.0-32.0); Mean Corpuscular Hgb Conc. 33.9 g/dL (32.0-36.0); Mean Corpuscular Volume 88.7 fL (80.0-100.0); Monocytes # (auto) 0.7 uL; Monocytes % (auto) 7.2 % (0.0-12.0); Neutrophils # (auto) 8.3 uL; Neutrophils % (auto) 81.1 % (37.0-80.0); Platelet Count (auto) 207 10^3/uL (140-450); Red Blood Cells 3.86 10^6/uL (4.0-5.20); Red Cell Distribution Width 16.2 % (11.8-14.3); White Blood Cell 10.2 10^3/uL (4.4-10.8)
[2018-06-25 12:44] LABS: Albumin 2.8 g/dL (3.4-5.0); Calcium 8.4 mg/dL (8.5-10.1); Potassium 3.9 mmol/L (3.5-5.1)
[2018-06-25 12:46] LABS: BUN/Creatinine Ratio 21.7
[2018-06-25 13:00] VITALS: BP 109/50
[2018-06-25 13:00] LABS: Bilirubin, Total 0.3 mg/dL (0.2-1.0); Total Protein 5.7 g/dL (6.4-8.2)
[2018-06-25 17:11] VITALS: BP 111/78
[2018-06-25] MEDS: ALPRAZolam 0.25 MG TAB PO PRN (21:56)
[2018-06-25 22:00] VITALS: BP 123/66
[2018-06-25] MEDS: IPRATROPIUM BROM 0.5 MG/2.5ML INH SOL NEB PRN (22:37)
[2018-06-26 05:00] VITALS: BP 100/54
[2018-06-26] MEDS: ACCU-CHEK COMFORT CURVE STRIP VI SCH ×3 (05:44→17:59)
[2018-06-26] MEDS: InsuLIN REG 1unit/0.01ml Soln (100units/ml) SC SCH ×3 (05:44→17:59)
[2018-06-26] MEDS: ALBUTEROL SULF 2.5 MG/0.5ML(0.5%) NEB SOLN NEB SCH ×3 (06:19→22:46)
[2018-06-26 08:41] VITALS: BP 129/49
[2018-06-26] MEDS: cefTRIAXone 1GM/10ml IVPUSH 10 ML IV SCH (09:17)
[2018-06-26] MEDS: methylPREDNISolone SOD SUCC 40 MG/ML VL IV SCH ×2 (09:17→21:47)
[2018-06-26] MEDS: FAMOTIDINE (10MG/ML) 2ML VL IV SCH ×2 (09:17→21:46)
[2018-06-26] MEDS: LINEZOLID 600MG/300ML 300 ML IV SCH ×2 (09:17→21:47)
[2018-06-26] MEDS: ENOXAPARIN SOD 40 MG/0.4 ML SYRINGE SC SCH (09:18)
[2018-06-26 09:24] LABS: BUN/Creatinine Ratio 22.2; Calcium 8.4 mg/dL (8.5-10.1); Potassium 3.8 mmol/L (3.5-5.1)
[2018-06-26 13:00] VITALS: BP 111/60
[2018-06-26 17:12] VITALS: BP 96/62
[2018-06-26 22:00] VITALS: BP 110/64
[2018-06-27] MEDS: InsuLIN REG 1unit/0.01ml Soln (100units/ml) SC SCH ×4 (01:35→18:00)
[2018-06-27] MEDS: ACCU-CHEK COMFORT CURVE STRIP VI SCH ×5 (01:35→23:59)
[2018-06-27 05:00] VITALS: BP 115/62
[2018-06-27 05:33] LABS: BUN/Creatinine Ratio 22.9; Calcium 8.1 mg/dL (8.5-10.1)
[2018-06-27] MEDS: ALBUTEROL SULF 2.5 MG/0.5ML(0.5%) NEB SOLN NEB SCH ×3 (07:00→22:26)
[2018-06-27 09:00] VITALS: BP 141/65
[2018-06-27] MEDS: FAMOTIDINE (10MG/ML) 2ML VL IV SCH ×2 (10:05→22:30)
[2018-06-27] MEDS: methylPREDNISolone SOD SUCC 40 MG/ML VL IV SCH ×2 (10:06→22:30)
[2018-06-27] MEDS: LINEZOLID 600MG/300ML 300 ML IV SCH ×2 (10:06→22:31)
[2018-06-27] MEDS: ENOXAPARIN SOD 40 MG/0.4 ML SYRINGE SC SCH (10:06)
[2018-06-27] MEDS: cefTRIAXone 1GM/10ml IVPUSH 10 ML IV SCH (10:06)
[2018-06-27 13:00] VITALS: BP 112/50
[2018-06-27] MEDS: IPRATROPIUM BROM 0.5 MG/2.5ML INH SOL NEB PRN ×2 (14:08→22:26)
[2018-06-27 17:00] VITALS: BP 122/75
[2018-06-27 21:41] VITALS: BP 110/63
[2018-06-27] MEDS: ALPRAZolam 0.25 MG TAB PO PRN (22:31)
[2018-06-28] MEDS: InsuLIN REG 1unit/0.01ml Soln (100units/ml) SC SCH ×5 (00:09→23:51)
[2018-06-28] MEDS: ACCU-CHEK COMFORT CURVE STRIP VI SCH ×4 (05:48→23:51)
[2018-06-28 05:56] LABS: Calcium 8.1 mg/dL (8.5-10.1); Potassium 3.9 mmol/L (3.5-5.1)
[2018-06-28] MEDS: ALBUTEROL SULF 2.5 MG/0.5ML(0.5%) NEB SOLN NEB SCH ×3 (06:47→22:08)
[2018-06-28 08:00] VITALS: BP 121/62
[2018-06-28 09:32] VITALS: BP 121/62
[2018-06-28] MEDS: methylPREDNISolone SOD SUCC 40 MG/ML VL IV SCH ×2 (10:15→22:08)
[2018-06-28] MEDS: cefTRIAXone 1GM/10ml IVPUSH 10 ML IV SCH (10:15)
[2018-06-28] MEDS: LINEZOLID 600MG/300ML 300 ML IV SCH ×2 (10:15→22:08)
[2018-06-28] MEDS: FAMOTIDINE (10MG/ML) 2ML VL IV SCH ×2 (10:15→22:08)
[2018-06-28 12:37] VITALS: BP 99/47
[2018-06-28 16:42] VITALS: BP 120/58
[2018-06-28 21:35] VITALS: BP 104/64
[2018-06-29 05:37] VITALS: BP 131/60
[2018-06-29] MEDS: InsuLIN REG 1unit/0.01ml Soln (100units/ml) SC SCH ×3 (05:59→18:00)
[2018-06-29] MEDS: ACCU-CHEK COMFORT CURVE STRIP VI SCH ×4 (05:59→23:53)
[2018-06-29] MEDS: ALBUTEROL SULF 2.5 MG/0.5ML(0.5%) NEB SOLN NEB SCH ×3 (06:36→21:52)
[2018-06-29 09:09] VITALS: BP 90/49
[2018-06-29] MEDS: FAMOTIDINE (10MG/ML) 2ML VL IV SCH ×2 (09:59→22:06)
[2018-06-29] MEDS: LINEZOLID 600MG/300ML 300 ML IV SCH ×2 (09:59→22:06)
[2018-06-29] MEDS: methylPREDNISolone SOD SUCC 40 MG/ML VL IV SCH ×2 (10:01→22:06)
[2018-06-29] MEDS: ALPRAZolam 0.25 MG TAB PO PRN ×2 (10:14→22:07)
[2018-06-29 14:05] VITALS: BP 105/61
[2018-06-29 16:38] VITALS: BP 93/49
[2018-06-29 21:35] VITALS: BP 98/58
[2018-06-30] MEDS: InsuLIN REG 1unit/0.01ml Soln (100units/ml) SC SCH ×4 (00:04→18:00)
[2018-06-30 04:33] VITALS: BP 102/57
[2018-06-30] MEDS: ACCU-CHEK COMFORT CURVE STRIP VI SCH ×3 (06:04→18:09)
[2018-06-30] MEDS: ALBUTEROL SULF 2.5 MG/0.5ML(0.5%) NEB SOLN NEB SCH ×2 (06:29→14:28)
[2018-06-30 08:20] VITALS: BP 111/67
[2018-06-30] MEDS: FAMOTIDINE (10MG/ML) 2ML VL IV SCH ×2 (10:23→20:25)
[2018-06-30] MEDS: methylPREDNISolone SOD SUCC 40 MG/ML VL IV SCH ×2 (10:23→20:24)
[2018-06-30] MEDS: LINEZOLID 600MG/300ML 300 ML IV SCH ×2 (10:23→20:30)
[2018-06-30 12:24] VITALS: BP 98/56
[2018-06-30 17:00] VITALS: BP 103/57
[2018-06-30] MEDS: ALPRAZolam 0.25 MG TAB PO PRN (20:32)
== END 2018-06-30 22:08 | DRG 870 ==
LOC: ER 11:08 → EDBD 11:08 → TELE 11:09 → ICU WEST 06-11 02:13 → TELE-WESTW 06-20 01:00
PROVIDERS: ADMIT Specialist; ATTEND Specialist
PROC: 5A1955Z Respiratory Ventilation, Greater than 96 Consecutive Hours (ICD-10-PCS; principal; 2018-06-10)
PROC: 0BH17EZ Insertion of Endotracheal Airway into Trachea, Via Natural or Artificial Opening (ICD-10-PCS; 2018-06-10)
PROC: 02HV33Z Insertion of Infusion Device into Superior Vena Cava, Percutaneous Approach (ICD-10-PCS; 2018-06-15)
DX: A41.9 Sepsis, unspecified organism (principal); I50.33 Acute on chronic diastolic (congestive) heart failure; J15.212 Pneumonia due to Methicillin resistant Staphylococcus aureus; J96.21 Acute and chronic respiratory failure with hypoxia; J15.5 Pneumonia due to Escherichia coli; E41 Nutritional marasmus; E22.2 Syndrome of inappropriate secretion of antidiuretic hormone; E44.0 Moderate protein-calorie malnutrition; E87.4 Mixed disorder of acid-base balance; J44.0 Chronic obstructive pulmonary disease with (acute) lower respiratory infection; N17.9 Acute kidney failure, unspecified; E86.1 Hypovolemia; E87.6 Hypokalemia; J98.4 Other disorders of lung; Z87.891 Personal history of nicotine dependence; Z85.118 Personal history of other malignant neoplasm of bronchus and lung; Z90.710 Acquired absence of both cervix and uterus; I25.2 Old myocardial infarction; Z99.81 Dependence on supplemental oxygen; Z88.8 Allergy status to other drugs, medicaments and biological substances; Z79.899 Other long term (current) drug therapy; Z68.26 Body mass index [BMI] 26.0-26.9, adult
CPT/HCPCS: 31500; 36415; 36600; 51702; 71045; 71275; 80048; 80053; 80202; 81001; 82533; 82570; 82805; 82962; 83605; 83735; 83880; 83935; 84132; 84156; 84300; 84443; 84484; 85025; 87040; 87070; 87077; 87081; 87186; 87205; 93005; 93970; 94002; 94003; 94640; 94660; 96361; 96365; 96375; 97163; 97530; 99291; A6257; J0330; J0696; J1815; J2001; J2250; J2704; J3480; J3490